=== PATIENT | male | born 1990 | race Caucasian/White ===

== ENCOUNTER → 2023-06-09 | Outpatient (CLI) | payer BC ==
--- NOTE | 2023-06-09 14:35 | P.SLEEP ---
History of Present Illness DATE: 06/09/2023 CONSULTATION/NEW PATIENT EVALUATION HISTORY OF PRESENT ILLNESS/SLEEP-WAKE EVALUATION: 32-year-old gentleman had been evaluated in the sleep center for possible obstructive sleep apnea hypopnea syndrome. SLEEP SCHEDULE: Usually sleep schedule 10 PM to 6 AM on weekdays and from midnight until 8 AM on weekend. FALLING ASLEEP: No problems with falling asleep. DURING SLEEP: Patient usually sleeps on the side position with loud snoring and witnessed episodes of stop breathing during the sleep. Patient wakes up from sleep up to 4 times with up to 2 episodes of nocturia. No history of hypnogogical hallucinations, sleep paralysis, or cataplexy. DURING THE DAY/WAKE STATE: In the morning patient wake up tired. [place] sleepiness scale is 4. Patient usually doesn't take naps. PAST MEDICAL HISTORY: Mostly negative. PAST SURGICAL HISTORY: Tonsillectomy and adenoidectomy. MEDICATIONS: None. SOCIAL HISTORY: Positive history of using marijuana, alcohol consumption occasional. FAMILY HISTORY: Positive for sleep apnea, heart problems, diabetes, pancreatic cancer. REVIEW OF SYSTEMS: Loud snoring, multiple awakenings from sleep. No fevers. No double vision. No recent chest pain. No shortness of breath. No abdominal pain. No bleeding episodes. No blood in urine. No seizure episodes. PHYSICAL EXAMINATION: GENERAL: A pleasant patient without any distress. VITAL SIGNS: BP 124/76, HR 64, RR 16, weight 184.2 pounds, height 5 foot 9-1/3 inches, body mass index 26.9. HEENT: PERRLA, EOMI. Evaluation of oropharynx showed tongue protrudes midline, low position of soft palate Mallampati 3. NECK: Supple. No JVD. Thyroid is not palpable. 17 inches in circumference. LUNGS: Clear to percussion and to auscultation. Good air exchange. No wheezing or rhonchi. HEART: S1, S2 regular. No murmurs, gallops or rubs. ABDOMEN: Soft and nontender. Bowel sounds are present. No organomegaly appreciated. EXTREMITIES: No clubbing or cyanosis. COMPUTER PROGRAMMING SUPERVISOR: Awake, alert, and oriented x3. Cranial nerves 2 to 7 intact. There is no fasciculation or atrophy noted. No focal deficits observed. ASSESSMENT: 1. Loud snoring, witnessed episodes of stop breathing during the sleep, low position of soft palate Mallampati 3, wide neck 17 inches in circumference. Obstructive sleep apnea-hypopnea syndrome. 2. Status post tonsillectomy. 3. Status post adenoidectomy. PLAN: 1. Home sleep apnea test for evaluation of patient's breathing during sleep. 2. Following plan after reading sleep study 3. Preferable position during sleep on the side. 4. No driving if patient feels any sleepiness. Patient is aware of civil and criminal liability for unsafe driving. 5. Sleep hygiene with regular sleep time for at least 7.5-8 hours. 6. Watching weight. Thank you very much for referring this patient for consultation. Sincerely, Alvaro Clifton MD, PhD, FAASM. Diplomat of [place] [employer], Sleep Medicine Board by [employer] [place] [employer] [place] [employer] Methods Analyst of [facility] [place] Sleep Note - Sleep Note Sleep Note: Temperature: Pulse Rate: Respiratory Rate: Blood Pressure: SpO2: Height: Weight: BMI: Neck Circumference:
== END ==
LOC: 3 N SLEEP 13:44
PROVIDERS: ATTEND Internal Medicine
DX: G47.33 Obstructive sleep apnea (adult) (pediatric) (principal); Z98.890 Other specified postprocedural states; Z90.89 Acquired absence of other organs
CPT/HCPCS: 99202

== ENCOUNTER → 2023-06-30 | Outpatient (CLI) | payer BC ==
--- NOTE | 2023-07-08 11:58 | P.PCN ---
Description of Procedure: CLINICAL: A home sleep apnea test has been done for confirmation of possible obstructive sleep apnea-hypopnea syndrome. DESCRIPTION OF PROCEDURE: RESULTS: Recording time was 7 hours 12 minutes. Evaluation time was 7 hours 00 minutes. Evaluation time is sufficient for making conclusion about results of the test. Raw data of sleep recording has been reviewed and is adequate. Respiratory channel showed 29 apneas and 115 hypopneas. Apnea-hypopnea index was 20.5 per hour. Pulse rate in the range between minimum 57, maximum 155, average 79 by computer calculation. Lowest desaturation was 79 %. IMPRESSION: 1. Moderate Obstructive Sleep Apnea Hypopnea Syndrome. Please see other impressions from consultation. PLAN: 1. The patient will be started on auto-PAP treatment for correction of respiratory abnormallities during sleep. 2. I will see patient for follow up visit to discuss results of the test, evaluate clinical response on treatment with PAP therapy and make any necessary adjustments related to mask fitting, pressure, and humidification. 3. Watching weight. 4. Sleep hygiene with regular time in bed for at least 8 hours. 5. No driving if feeling any sleepiness. Thank you very much for allowing me to participate in the management of your patient. Sincerely, Alvaro Clifton MD, PhD, FAASM Diplomat of [employer] Sleep Medicine Board of [employer] Medicine Corrosion Control Engineer of [facility] [place]
== END ==
LOC: 3 N SLEEP 10:53
PROVIDERS: ATTEND Internal Medicine
DX: G47.33 Obstructive sleep apnea (adult) (pediatric) (principal)

== ENCOUNTER → 2023-09-16 | Outpatient (CLI) | payer BC ==
--- NOTE | 2023-09-16 15:41 | P.PN ---
Subjective DATE: 09/16/2023 FOLLOW UP VISIT. Patient with obstructive sleep apnea hypopnea syndrome return to sleep center for follow-up visit. Recently patient had sleep study which documented obstructive sleep apnea hypopnea syndrome. Patient was initiated on PAP therapy and today is first visit after treatment was started. Patient was able to use PAP equipment most of the nights. The patient does not have significant problems with the mask, PAP pressure and humidification. [place] sleepiness scale is 6. I checked information from PAP unit. PAP unit pressure 5-14, average 8.2 cm H2O. Usage is 50% and about 20 % for more then 4 hours, average 2.8 hours per night. Leak is 16 l/m, which is in acceptable range. Apnea Hypopnea Index is 4.6, which is normal. MEDICATIONS: None During physical exam: GENERAL: A pleasant patient without any distress. VITAL SIGNS: BP 118/70, HR 66, RR 12 , weight 190.4, temperature 98.3, oxygen saturation at room air 97% . HEENT: PERRLA, EOMI.low position of soft palate, Mallapati 3 . NECK: Supple. No JVD. LUNGS: Clear to percussion and to auscultation. Good air exchange. No wheezing or rhonchi. HEART: S1, S2 regular. ABDOMEN: Soft and nontender.[] EXTREMITIES: No clubbing or cyanosis. RN INTENSIVE CARE UNIT: Awake, alert, and oriented x3. No focal deficit. Impressions: 1. Obstructive sleep apnea-hypopnea syndrome. Patient is using CPAP equipment, but not for the whole night presently. Respiration normalized on CPAP. 2. Status post tonsillectomy. 3. Status post adenoidectomy. Plan: 1. Continue using PAP equipment every night for the whole night. Patient promised to follow recommendations. 2. To change air filter at least 1-2 times per month. 3. PAP unit should stay lower then position of the head. 4. Advised patient to remove all remaining water from humidifier canister daily and make it dry after each usage. Refill canister with fresh distilled water before each usage. 5. Sleep hygiene with regular time in bed for at least 8 hours. 6. Precautions related to driving. No driving if feel any sleepiness. 7. I will maintain prescription for PAP supplies including mask, tube, filters. 8. Follow up visit in 1-1.5 months or earlier if patient has any problems. 9. Watching weight. Thank you very much for allowing me to participate in the management of your patient. Alvaro Clifton MD, PhD, FAASM. Diplomat of [place] Board [employer] Medicine, Sleep Medicine Board by [place] [employer] of [employer] Medicine Crotch Piece Baster of [facility] [place]
== END ==
LOC: 3 N SLEEP 15:13
PROVIDERS: ATTEND Internal Medicine
DX: G47.33 Obstructive sleep apnea (adult) (pediatric) (principal); Z98.890 Other specified postprocedural states; Z90.89 Acquired absence of other organs; Z99.89 Dependence on other enabling machines and devices
CPT/HCPCS: 99212

== ENCOUNTER → 2023-11-04 | Outpatient (CLI) | payer BC ==
--- NOTE | 2023-11-04 16:27 | P.PN ---
Subjective DATE: 11/04/2023 FOLLOW UP VISIT. Patient with obstructive sleep apnea hypopnea syndrome return to sleep center for follow-up visit. Information from previous visit have been reviewed. Patient is using PAP equipment every night for the whole night, getting PAP supplies in time. The patient does not have significant problems with the mask, PAP unit and humidification. [place] sleepiness scale is 7, which is normal. I checked information from PAP unit. PAP unit pressure 5-14, average 8.9 cm H2O. Usage is 80% and 63% for more then 4 hours, average 5.25 hours per night. Leak is 10.6 l/m, which is in acceptable range. Apnea Hypopnea Index is 1.3, which is normal. MEDICATIONS: None During physical exam: GENERAL: A pleasant patient without any distress. VITAL SIGNS: Please see below. HEENT: PERRLA, EOMI.low position of soft palate, Mallapati 3 . NECK: Supple. No JVD. LUNGS: Clear to percussion and to auscultation. Good air exchange. No wheezing or rhonchi. HEART: S1, S2 regular. ABDOMEN: Soft and nontender.[] EXTREMITIES: No clubbing or cyanosis. STITCHER OPERATOR: Awake, alert, and oriented x3. No focal deficit. Impressions: 1. Obstructive sleep apnea-hypopnea syndrome. Patient demonstrated borderline compliance with treatment, benefiting from treatment. 2. Status post tonsillectomy. 3. Status post adenoidectomy. Plan: 1. Continue using PAP equipment every night for the whole night. 2. To change air filter at least 1-2 times per month. 3. PAP unit should stay lower then position of the head. 4. Advised patient to remove all remaining water from humidifier canister daily and make it dry after each usage. Refill canister with fresh distilled water before each usage. 5. Sleep hygiene with regular time in bed for at least 8 hours. 6. Precautions related to driving. No driving if feel any sleepiness. 7. I will maintain prescription for PAP supplies including mask, tube, filters. 8. Follow up visit in 6 months or earlier if patient has any problems. 9. Watching weight. Thank you very much for allowing me to participate in the management of your patient. Alvaro Clifton MD, PhD, FAASM. Diplomat of [place] Board of Sleep Medicine, Sleep Medicine Board by [place] Board of Internal Medicine Wood Veneer Taper of [facility] [place]
--- NOTE | 2023-11-04 17:44 | P.PN ---
Subjective DATE: 11/04/2023 FOLLOW UP TELEMEDICINE APPOINTMENT. Patient have been followed for treatment of obstructive sleep apnea hypopnea syndrome. Information from previous visit have been reviewed. Patient is using PAP equipment every night for the whole night, getting PAP supplies in time. The patient does not have significant problems with the mask, PAP unit and humidification. I checked information from PAP unit using FUJIAN HAIYUAN and explain it to the patient in details. PAP unit pressure 5-10, average 10.0 cm H2O. Usage is 100% for more then 4 hours, average 6.5 hours per night. Leak is in perfect range 1.6 l/m. Apnea Hypopnea Index is 5.3, which is borderline. Patient sleeps well, no snoring. MEDICATIONS: 1. Simvastatin 2. Hydrochlorothiazide According to patient her weight now is 185 pounds which on 6 pounds less than during previous visit. Impressions: 1. Obstructive sleep apnea-hypopnea syndrome. Patient demonstrated great compliance with treatment, benefiting from treatment. 2. Hyperlipidemia. 3. History of headaches. 4. History of vertigo. 5. Back problems with history of herniated disc. 6. Mild obesity. Plan: 1. Continue using PAP equipment every night for the whole night. 2. To change air filter at least 1-2 times per month. 3. PAP unit should stay lower then position of the head. 4. Advised patient to remove all remaining water from humidifier canister daily and make it dry after each usage. Refill canister with fresh distilled water b efore each usage. 5. Sleep hygiene with regular time in bed for at least 8 hours. 6. Precautions related to driving. No driving if feel any sleepiness. 7. I will maintain prescription for PAP supplies including mask, tube, filters. 8. Watching weight. 9. Follow up visit in 6 months or earlier if patient has any problems. Thank you very much for allowing me to participate in the management of your patient. Alvaro Clifton MD, PhD, FAASM. Diplomat of [place] [employer] Medicine, Sleep Medicine Board by [place] [employer] Medicine Middleware Architect of [facility] [place]
== END ==
LOC: 3 N SLEEP 15:45
PROVIDERS: ATTEND Internal Medicine
DX: G47.33 Obstructive sleep apnea (adult) (pediatric) (principal); E66.9 Obesity, unspecified; E78.5 Hyperlipidemia, unspecified; M51.9 Unspecified thoracic, thoracolumbar and lumbosacral intervertebral disc disorder; M54.9 Dorsalgia, unspecified; Z86.69 Personal history of other diseases of the nervous system and sense organs; Z87.39 Personal history of other diseases of the musculoskeletal system and connective tissue; Z99.89 Dependence on other enabling machines and devices
CPT/HCPCS: 99212

== ENCOUNTER → 2024-06-21 | Outpatient (CLI) | payer OTHER ==
--- NOTE | 2024-06-25 18:51 | MR ---
EXAMINATION TYPE: MR lumbar spine wo con DATE OF EXAM: 06/21/2024 12:09 PM COMPARISON: None. CLINICAL INDICATION: Male, 33 years old with history of M54.42 Lumbago with sciatica, TECHNIQUE: Multiplanar, multisequence images of the lumbar spine were acquired. IV Contrast: mL (None, if empty) FINDINGS: Cord ends at the T12 L5-S1: Broad-based disc bulge is present with mild anterior thecal sac contact. This indents the epid ural space. Disc desiccation is present. Mild facet degenerative changes are present. Neural foramen are patent. There is a punctate area of increased signal within the posterior disc space can be kim tible with an annular tear. L4-L5: Disc bulge is present. No AP spinal canal stenosis is present. Neural foramen are patent L3-L4: Disc bulge is present with anterior thecal sac flattening. No AP spinal canal stenosis or neur al foraminal stenosis. L2-L3: Disc bulge is present with anterior thecal sac flattening. No AP spinal canal stenosis or neur al foraminal stenosis. L1-L2: No focal disc herniation or significant disc bulge. No spinal canal stenosis. Neural foramen are patent. T12-L1: No focal disc herniation or significant disc bulge. No spinal canal stenosis. Neural forame n are patent. IMPRESSION: 1. Partly large central disc herniation with minimal anterior thecal sac contact at L5-S1. 2. L5-S1 disc Desiccation and loss of disc height is present at this level. Small annular tear may be present. 3. Mild disc bulge with anterior thecal sac flattening L3-4, L2-3. [facility], , 06/25/2024 6:49 PM
== END | disposition home or self-care (01) ==
LOC: RADMRIMAIN 11:35
PROVIDERS: ATTEND Family Medicine
DX: M54.42 Lumbago with sciatica, left side (principal); M51.379 Other intervertebral disc degeneration, lumbosacral region without mention of lumbar back pain or lower extremity pain
CPT/HCPCS: 72148

== ENCOUNTER → 2024-06-22 | Outpatient (CLI) | payer BC ==
[2024-06-22 14:57] VITALS: BP 118/74; PULSE 74; RESP 16; TEMP 97.6
--- NOTE | 2024-06-22 15:10 | P.PROGSL ---
Subjective DATE: 06/22/2023 FOLLOW UP VISIT. Patient with obstructive sleep apnea hypopnea syndrome return to sleep center for follow-up visit. Information from previous visit have been reviewed. Patient is using PAP equipment every night for the whole night, getting PAP supplies in time. The patient does not have significant problems with the mask, PAP unit and humidification. [place] sleepiness scale is 7, which is normal. I checked information from PAP unit. PAP unit pressure 5-14, average 8.5 cm H2O. Usage is 53% for more then 4 hours, average 3.75 hours per night. Leak is 17.3 l/m, which is in acceptable range. Apnea Hypopnea Index is 0.6, which is normal. MEDICATIONS have been reviewed, please see below. During physical exam: GENERAL: A pleasant patient without any distress. VITAL SIGNS: Please see below, weight is 190 lbs. HEENT: PERRLA, EOMI.low position of soft palate, Mallapati 3. NECK: Supple. No JVD. LUNGS: Clear to percussion and to auscultation. Good air exchange. No wheezing or rhonchi. HEART: S1, S2 regular. ABDOMEN: Soft and nontender.[] EXTREMITIES: No clubbing or cyanosis. VACUUM CLEANER OPERATOR: Awake, alert, and oriented x3. No focal deficit. Impressions: 1. Obstructive sleep apnea-hypopnea syndrome. Patient demonstrated borderline compliance with treatment, benefiting from treatment. 2. Status post tonsillectomy. 3. Status post adenoidectomy. Plan: 1. Continue using PAP equipment every night for the whole night. 2. Sleep hygiene with regular time in bed for at least 7.5-8 hours 3. PAP unit should stay lower then position of the head. 4. Advised patient to remove all remaining water from humidifier canister daily and make it dry after each usage. Refill canister with fresh distilled water before each usage. 5. Watching weight. 6. Precautions related to driving. No driving if feel any sleepiness. 7. I will maintain prescription for PAP supplies including mask, tube, filters. 8. Follow up visit in 8 months or earlier if patient has any problems. Thank you very much for allowing me to participate in the management of your patient. Alvaro Clifton MD, PhD, FAASM. Diplomat of [place] [employer] Sleep Medicine, Sleep Medicine Board by [place] [employer] Medicine Wafer Machine Operator of [facility] [place] Objective - Vital Signs Vital Signs: Vital Signs Temp 97.6 F 06/22/24 14:56 Pulse 74 06/22/24 14:56 Resp 16 06/22/24 14:56 BP 118/74 06/22/24 14:56 Pulse Ox 96 06/22/24 14:56 FiO2 Intake & Output 06/21/24 06/22/24 06/22/24 18:59 06:59 18:59 Weight 86.183 kg Home Medications: Home Medications Medication Instructions Recorded Confirmed Type valACYclovir HCL [Valacyclovir] 1,000 mg PO DAILY 06/22/24 06/22/24 History
== END ==
LOC: 3 N SLEEP 13:45
PROVIDERS: ATTEND Internal Medicine
DX: G47.33 Obstructive sleep apnea (adult) (pediatric) (principal); Z98.890 Other specified postprocedural states; Z90.89 Acquired absence of other organs; Z99.89 Dependence on other enabling machines and devices
CPT/HCPCS: 99212